=== PATIENT | female | born 1950 | race Caucasian/White ===

== ENCOUNTER 2022-02-15 10:43 | Outpatient (CLI) | payer MEDICARE, OTHER, SELFPAY ==
--- NOTE | 2022-02-15 11:00 | CRLHL7_ITS ---
For Patients: As a result of the Century Cures Act, medical imaging exams and procedure reports are released immediately into your electronic medical record. You may view this report before your referring provider. If you have questions, please contact your health care provider. Indication: FOLLOW UP FOR RECTAL CANCER Technique: Postcontrast CT chest, abdomen and pelvis. 79 cc Isovue 370 intravenous contrast. Oral water. Please note that all CT scans at this facility use dose modulation, iterative reconstruction, and/or weight-based dosing when appropriate to reduce radiation dose to as low as reasonably achievable. Comparison: 01/29/2021 Findings: In the chest, no suspicious pulmonary nodule is present. There is no mediastinal, hilar or axillary adenopathy. Visualized thyroid is normal. No aortic aneurysm or dissection. Small hiatal hernia is present. No infiltrate or edema. No effusion or pneumothorax. No fracture. In the abdomen, no intrahepatic mass is present. Gallbladder absent. No biliary obstruction. Spleen normal. Normal adrenal glands. Stable 1 centimeter simple cyst left kidney. Right kidney normal. Normal ureters. Vascular calcifications. No aneurysm. No adenopathy in the mesenteric fat or retroperitoneum. Pancreas normal. In the pelvis, stable uterine fibroid. No adnexal mass. Mild colonic diverticulosis. No diverticulitis. Normal appendix. No free air or free fluid. No abscess. Similar appearance of the rectum. No enlarged pelvic or inguinal lymph nodes. Degenerative changes. No fracture. No intrinsic osseous lesion. Impression: No evidence of metastatic disease. Stable exam. Please note that all CT scans at this facility use dose modulation, iterative reconstruction, and/or weight-based dosing when appropriate to reduce radiation dose to as low as reasonably achievable. Dictated by Suman Zhang MD @ 02/15/2022 1:12:12 PM (Electronically Signed)
[2022-02-15 11:22] LABS: Estimated Glomerular Filt Rate 60 ml/min
== END 2022-02-15 10:44 | disposition home or self-care (01) ==
PROVIDERS: PCP Radiology Radiation Oncology; Visit Provider Radiology Radiation Oncology
DX: C20 Malignant neoplasm of rectum (principal)
CPT/HCPCS: 36415; 71260; 74177; 82565; Q9967

== ENCOUNTER 2022-11-09 09:56 | Emergency (ER) | payer MEDICARE, OTHER, SELFPAY ==
[2022-11-09] VITALS (23 sets, daily range): BP systolic 121–151; BP diastolic 70–89; PULSE 83–104; RESP 16; TEMP 36.6; O2SAT 94–98; BMI 26.3
[2022-11-09 10:27] LABS: Basophils Absolute Auto 0.03 K/uL (0.00-0.30); Basophils Percent Auto 0.5 % (0.0-3.0); Eosinophils Absolute Auto 0.12 K/uL (0.00-0.50); Eosinophils Percent Auto 1.8 % (0.0-7.0); Hematocrit 44.7 % (33.0-51.0); Hemoglobin* 14.7 gm/dL (12.0-16.0); Immature Granulocytes Abs Auto 0.02 K/uL (0.00-0.30); Immature Granulocytes Pct Auto 0.3 %; Lymphocytes Percent Auto 27.7 % (20-44); Mean Corpuscular HGB Conc 33 gm/dL (32-36); Mean Corpuscular Hemoglobin 29 pg (26-34); Mean Corpuscular Volume 88 fL (80-100); Monocytes Percent Auto 5.4 % (0.0-11.0); Neutrophils Absolute Auto 4.17 K/uL (1.7-7.0); Neutrophils Percent Auto 64.3 % (42.0-72.0); Platelet Count* 301 K/uL (140-440); RDW Coefficient of Variation % 12.8 % (11.5-15.5); Red Blood Count 5.06 m/uL (4.00-5.20); White Blood Count* 6.49 K/uL (4.50-11.00)
--- NOTE | 2022-11-09 10:27 | CRLHL7_ITS ---
For Patients: As a result of the Century Cures Act, medical imaging exams and procedure reports are released immediately into your electronic medical record. You may view this report before your referring provider. If you have questions, please contact your health care provider. INDICATION: Chest pain. TECHNIQUE: PA and lateral chest. COMPARISON: [facility] portable chest x-ray November 20, 2018. FINDINGS: Both lungs are expanded and clear without pneumothoraces nodules or infiltrates. Small paracardiac fat pad on the left. Normal heart size. No pleural effusions. Surgical clips in the right upper quadrant. The included skeleton is unremarkable. IMPRESSION: No acute cardiopulmonary process identified. Interval removal of the right PICC line. Dictated by Hector Cota MD @ 11/09/2022 11:11:04 AM (Electronically Signed)
[2022-11-09 10:30] LABS: Slide Review Reflex No
[2022-11-09 10:44] LABS: Albumin* 4.3 g/dL (3.3-5.0); Chloride* 105 mmol/L (96-114); Sodium* 139 mmol/L (135-149)
[2022-11-09 10:46] LABS: Creatinine* 1.1 mg/dL (0.5-1.5); Est. Creatinine Clearance* 43.28; Estimated Glomerular Filt Rate 53 ml/min
[2022-11-09 10:47] LABS: Alanine Aminotransferase* 22 U/L (4-35); Alkaline Phosphatase* 109 U/L (40-150); Aspartate Amino Transferase* 27 U/L (12-35); Bilirubin Total* 0.5 mg/dL (0.1-1.5); Blood Urea Nitrogen* 16 mg/dL (7-30); Calcium* 9.2 mg/dL (8.4-10.6); Carbon Dioxide* 26 mmol/L (20-32); D Dimer Quantitative* 0.39 ug/ml (0.00-0.50); Glucose* 116 mg/dL (60-115); Total Protein* 7.7 g/dL (6.0-8.3)
[2022-11-09 10:57] LABS: Appearance Urine Clear (Clear); Bilirubin Urine Negative (Negative); Blood Urine Negative (Negative); Color Urine Yellow (Yellow); Glucose Urine Negative (Negative); Ketones Urine Negative (Negative); Leukocyte Esterase Urine Negative (Negative); Nitrite Urine Negative (Negative); Protein Urine Negative (Negative); Urobilinogen Urine 0.2 (0.2-1.0)
[2022-11-09 11:00] LABS: Troponin I* < 0.01 ng/mL (0.01-0.04)
--- NOTE | 2022-11-09 11:01 | ED.GENADULT ---
HPI - General Adult General Chief complaint: Chest Pain Stated complaint: Chest pain Time Seen by Provider: 11/09/22 10:00 Source: patient Mode of arrival: ambulatory Limitations: no limitations History of Present Illness HPI narrative: Patient is a 72-year-old female presenting emergency department for chest pain. She says the pain comes and been going on for a month and has been on. She states yesterday she notices going up into her neck and down her left arm so she became concerned. She tried given with primary care provider the current someone to clinic today. They sent her to the emergency department to be evaluated. She does state she is not having the pain at this time. She describes as a pressure sensation that radiates appearing neck and arm left arm intermittently. Denies any shortness of breath. Denies pain with deep breaths. Noon denies fevers, chills, abdominal pain, nausea, vomiting, lightheadedness, dizziness. She does have a history of colon cancer and was on chemo and radiotherapy there is currently not on that anymore. She follows with a cancer provider every 6 months. She has not seen a primary care provider in 4 years. She has never been diagnosed with hypertension and or other cardiac issues is not currently taking any medications. Related Data Home Medications Medication Instructions Recorded Confirmed No Known Home Medications 11/09/22 11/09/22 Allergies Allergy/AdvReac Type Severity Reaction Status Date / Time No Known Drug Allergies Allergy Verified 11/09/22 10:02 Review of Systems Status of ROS: Reports: 10 or more systems reviewed and unremarkable except as noted in History and below [facility] Social History Smoking Status: Never smoker Do you use any of these nicotine containing products: None Second hand tobacco smoke exposure: No How often do you have a drink containing alcohol: never AUDIT-C Alcohol total score: 0 Non-prescribed substance use: denies use service: No Exam Narrative: Exam Narrative: Const: Well-nourished, Well-developed, in mild distress Eyes: PERRL, no conjunctival injection, and symmetrical lids ENMT: Atraumatic external nose and ears. Moist mucous membranes. Neck: Symmetric, trachea midline, No thyromegaly. CVS: RRR, No murmurs or gallops. Peripheral pulses 2+ and equal in all extremities RESP: Unlabored respiratory effort. Clear to auscultation bilaterally. GI: Nontender/Nondistended, No rebound or guarding. MSK:Extremities w/o deformity, Normal Active ROM. Tenderness to palpation left upper chest Skin: Warm, Dry. No rashes or lesions. Neuro: Normal Muscle tone, No focal neurological deficits. Psych: Awake, Alert, & Oriented x3. Appropriate mood and affect. Const: Vital Signs, click to edit/add: Vital Signs - 24 hr 11/09/22 10:02 11/09/22 10:03 11/09/22 10:03 Temperature 97.8 F Pulse Rate 103 H 104 H Pulse Rate [Pulse Oximeter] 98 Respiratory Rate 16 Blood Pressure 151/89 H Blood Pressure [Le ft Upper Arm] 151/89 H Pulse Oximetry 96 96 96 Oxygen Delivery Me od Room Air 11/09/22 10:15 11/09/22 10:17 11/09/22 10:33 Temperature Pulse Rate 97 100 94 Pulse Rate [Pulse Oximeter] Respiratory Rate Blood Pressure 148/89 H Blood Pressure [Le ft Upper Arm] Pulse Oximetry 97 97 97 Oxygen Delivery Me thod 11/09/22 10:45 11/09/22 11:00 11/09/22 11:02 Temperature Pulse Rate 90 90 90 Pulse Rate [Pulse Oximeter] Respiratory Rate Blood Pressure 135/70 Blood Pressure [Le ft Upper Arm] Pulse Oximetry 94 95 95 Oxygen Delivery Me thod 11/09/22 11:15 11/09/22 11:30 11/09/22 11:32 Temperature Pulse Rate 87 88 91 Pulse Rate [Pulse Oximeter] Respiratory Rate Blood Pressure 129/70 Blood Pressure [Le ft Upper Arm] Pulse Oximetry 95 96 97 Oxygen Delivery Me thod 11/09/22 11:45 11/09/22 12:00 11/09/22 12:02 Temperature Pulse Rate 86 83 85 Pulse Rate [Pulse Oximeter] Respiratory Rate Blood Pressure 123/75 Blood Pressure [Le ft Upper Arm] Pulse Oximetry 95 96 97 Oxygen Delivery Me thod 11/09/22 12:15 11/09/22 12:30 11/09/22 12:32 Temperature Pulse Rate 84 85 85 Pulse Rate [Pulse Oximeter] Respiratory Rate Blood Pressure 128/76 Blood Pressure [Le ft Upper Arm] Pulse Oximetry 96 96 96 Oxygen Delivery Me thod 11/09/22 12:45 11/09/22 13:00 11/09/22 13:01 Temperature Pulse Rate 87 86 85 Pulse Rate [Pulse Oximeter] Respiratory Rate Blood Pressure 121/72 Blood Pressure [Le ft Upper Arm] Pulse Oximetry 95 98 97 Oxygen Delivery Me thod 11/09/22 13:19 11/09/22 13:30 11/09/22 13:32 Temperature Pulse Rate 87 87 89 Pulse Rate [Pulse Oximeter] Respiratory Rate Blood Pressure 127/70 Blood Pressure [Le ft Upper Arm] Pulse Oximetry 97 97 97 Oxygen Delivery Me thod Course Vital Signs Vital signs: Initial Vital Signs Pulse Rate 103 H 11/09/22 10:02 Pulse Oximetry 96 11/09/22 10:02 Vital Signs Pulse Rate 103 H 11/09/22 10:02 Pulse Oximetry 96 11/09/22 10:02 Temperature 97.8 F 11/09/22 10:03 Pulse Rate 89 11/09/22 13:32 Respiratory Rate 16 11/09/22 10:03 Blood Pressure 127/70 11/09/22 13:32 Pulse Oximetry 97 11/09/22 13:32 Oxygen Delivery Method Room Air 11/09/22 10:03 Medical Decision Making MDM Narrative Medical decision making narrative: Patient has an anterior feeling presenting emergency department for chest pain. She has been having symptoms for over a month now but does they got worse. Try to follow-up with primary care provider and when she arrived there they sent her to the emergency department. She states the pain goes into her arm and upper neck. On my exam of the pain was reproducible on palpation. Based on her description it does sound like it could be musculoskeletal but we cannot rule out cardiac at this time. Cbc, CMP, urinalysis, troponin, chest x-ray EKG were all ordered. She does not want anything for pain at this time Patient's lab work returns showing no concerning abnormalities. Repeat troponin was within normal limits. Both were less than 0.01. Chest x-ray showed no concerning abnormalities. EKG done here shows no concerning findings. We also did a D-dimer with a history of cancer and came back within normal limits. Pulmonary embolism is unlikely. Vital signs stable and aortic dissection or aortic aneurysm unlikely at this time. We are not able to definitively rule out ACS at this time but her heart score is 2. Will discharge home informed of follow-up to primary care provider. She says she has 1 she could follow up with. I informed her to speak to him about referring her for cardiology. She is agreeable to this plan. Lab Data Labs: Lab Results 11/09/22 11/09/22 11/09/22 Range/Units 10:11 10:30 12:36 WBC 6.49 (4.50-11.00) K/uL RBC 5.06 (4.00-5.20) m/uL Hgb 14.7 (12.0-16.0) gm/dL Hct 44.7 (33.0-51.0) % MCV 88 (80-100) fL MCH 29 (26-34) pg MCHC 33 (32-36) gm/dL RDW Coeff of Juan 12.8 (11.5-15.5) % Plt Count 301 (140-440) K/uL Neut % (Auto) 64.3 (42.0-72.0) % Lymph % (Auto) 27.7 (20-44) % Haakon % (Auto) 5.4 (0.0-11.0) % Eos % (Auto) 1.8 (0.0-7.0) % Baso % (Auto) 0.5 (0.0-3.0) % Neut # (Auto) 4.17 (1.7-7.0) K/uL Lymph # (Auto) 1.80 (0.90-2.90) K/uL Haakon # (Auto) 0.40 (0.00-0.90) K/UL Eos # (Auto) 0.12 (0.00-0.50) K/uL Baso # (Auto) 0.03 (0.00-0.30) K/uL Abs Immat Gran (auto) 0.02 (0.00-0.30) K/uL Imm/Tot Granulo (auto) 0.3 % D-Dimer Quant (PE/DVT) 0.39 (0.00-0.50) ug/ml Sodium 139 (135-149) mmol/L Potassium 4.0 (3.6-5.1) mmol/L Chloride 105 (96-114) mmol/L Carbon Dioxide 26 (20-32) mmol/L BUN 16 (7-30) mg/dL Creatinine 1.1 (0.5-1.5) mg/dL Estimated Creat Clear 43.28 Estimated GFR 53 ml/min Glucose 116 H (60-115) mg/dL Calcium 9.2 (8.4-10.6) mg/dL Total Bilirubin 0.5 (0.1-1.5) mg/dL AST 27 (12-35) U/L ALT 22 (4-35) U/L Alkaline Phosphatase 109 (40-150) U/L Troponin I < 0.01 L < 0.01 L (0.01-0.04) ng/mL Total Protein 7.7 (6.0-8.3) g/dL Albumin 4.3 (3.3-5.0) g/dL Urine Color Yellow (Yellow) Urine Appearance Clear (Clear) Urine pH 6.0 (5.0-8.5) Ur Specific Blackburn 1.020 (1.000-1.030) Urine Protein Negative (Negative) Urine Glucose (UA) Negative (Negative) Urine Ketones Negative (Negative) Urine Blood Negative (Negative) Urine Nitrite Negative (Negative) Urine Bilirubin Negative (Negative) Urine Urobilinogen 0.2 (0.2-1.0) Ur Leukocyte Esterase Negative (Negative) Urine RBC 0-2 (0-2) Urine WBC 0-2 (0-5) Ur Squamous Epith Cells Few (None-Few) Urine Bacteria Few A (None) ECG Data Attestation: I personally reviewed and interpreted this ECG as follows: (Normal sinus rhythm rate 90 beats per minute, normal axis, no ST or T-wave abnormalities, normal intervals) Prior ECG tracings: not available for review Discharge Plan Discharge Clinical Impression: Atypical chest pain Patient Disposition: Home, Self-Care Condition: Stable Instructions: Chest Pain (DC) Additional Instructions: Follow-up with the primary care provider. Speak to them about follow-up with a non destructive evaluation specialist. Your lab work and EKG all look within normal limits at this time. You may have a musculoskeletal strain I recommended taking Tylenol or ibuprofen for the pain. If symptoms worsen at all please return to the emergency department immediately Prescriptions: No Action No Known Home Medications Follow Up/Referrals: Alicia Winn MD [Primary Care Provider] - Stand Alone Forms: [employer] Info Instructions
[2022-11-09 11:14] LABS: Bacteria Urine Few; RBC Urine 0-2 (0-2); Squamous Epithelial Cell Urine Few (None-Few); WBC Urine 0-2 (0-5)
[2022-11-09 13:12] LABS: Troponin I* < 0.01 ng/mL (0.01-0.04)
== END 2022-11-09 13:45 | disposition home or self-care (01) ==
PROVIDERS: Emergency Provider Student in an Organized Health Care Education/Training Program; PCP Radiology Radiation Oncology
DX: R07.89 Other chest pain (principal)
CPT/HCPCS: 36415; 71046; 80053; 81001; 84484; 85025; 85379; 87086; 93005; 99283; 99284; 99285

== ENCOUNTER 2023-02-01 12:45 | Outpatient (CLI) | payer MEDICARE, OTHER, SELFPAY ==
--- NOTE | 2023-02-01 13:00 | CRLHL7_ITS ---
For Patients: As a result of the Century Cures Act, medical imaging exams and procedure reports are released immediately into your electronic medical record. You may view this report before your referring provider. If you have questions, please contact your health care provider. Indication: Malignant NEOPLASM OF RECTUM Technique: Postcontrast CT chest, abdomen and pelvis. 79 cc Isovue 370 intravenous contrast. Please note that all CT scans at this facility use dose modulation, iterative reconstruction, and/or weight-based dosing when appropriate to reduce radiation dose to as low as reasonably achievable. Comparison: 02/15/2022 Findings: In the chest, 2 millimeter nodule right upper lobe is likely similar, . Additional subtle nodular density is present within the right lung measuring 2 millimeters, . Mild biapical pleural parenchymal scarring is similar. No infiltrate. No edema. No effusion. No pneumothorax. No thyroid lesion. No enlarged intrathoracic lymph nodes. Breast tissue appears normal. No fracture. In the abdomen, there is no intrahepatic mass. The gallbladder is absent. The spleen is within normal limits. Normal pancreas. Normal right kidney. Incidental simple cyst left kidney. No retroperitoneal or mesenteric adenopathy. Normal adrenal glands. In the pelvis, the bladder is normal. Similar appearance of the uterus with intramural fibroid. No adnexal mass. No pelvic or inguinal adenopathy. Normal appendix. No bowel obstruction. No abscess. No fracture. Degenerative changes. Similar appearance of the rectum. Impression: No significant interval change. Please note that all CT scans at this facility use dose modulation, iterative reconstruction, and/or weight-based dosing when appropriate to reduce radiation dose to as low as reasonably achievable. Dictated by Suman Zhang MD @ 02/02/2023 1:24:47 PM (Electronically Signed)
[2023-02-01 13:19] LABS: Estimated Glomerular Filt Rate 60 ml/min
== END 2023-02-01 12:46 | disposition home or self-care (01) ==
LOC: CT 12:46
PROVIDERS: PCP Family Medicine; Visit Provider Nurse Practitioner
DX: C20 Malignant neoplasm of rectum (principal)
CPT/HCPCS: 36415; 71260; 74177; 82565; Q9967

== ENCOUNTER 2024-02-06 09:29 | Outpatient (CLI) | payer MEDICARE, OTHER, SELFPAY ==
--- NOTE | 2024-02-06 10:00 | CRLHL7_ITS ---
For Patients: As a result of the Century Cures Act, medical imaging exams and procedure reports are released immediately into your electronic medical record. You may view this report before your referring provider. If you have questions, please contact your health care provider. INDICATION: Follow-up rectal cancer TECHNIQUE: CT chest, abdomen and pelvis acquired with 80 mL Isovue 370 IV contrast. COMPARISON: 02/01/2023, 02/15/2022 chest abdomen pelvis CTs, 01/29/[address] FINDINGS: CHEST: Cardiovascular structures: Heart size is normal. Thoracic aorta and main pulmonary artery are normal in caliber. Mediastinum and skye: No mass or adenopathy. Lungs and pleura: A few right upper lobe micro nodules best seen on the MIP images are stable. No new nodules. Chest wall and axilla: No mass or adenopathy. Bones: No suspicious bone lesions. Unremarkable for age. ABDOMEN AND PELVIS: Liver: Unremarkable. Gallbladder and bile ducts: Cholelithiasis. Pancreas: Unremarkable. Spleen: Unremarkable. Adrenal glands: Unremarkable. Kidneys: Left renal cyst. GI tract: Sigmoid diverticulosis without diverticulitis. No mass or inflammation seen. Vascular structures: Unremarkable. Lymph nodes: Unremarkable. Miscellaneous: Unremarkable. No free air or significant free fluid. Pelvic Organs: Stable presumed uterine fibroid. Bones: No suspicious bone lesions. Unremarkable for age. IMPRESSION: No evidence for recurrent or metastatic disease. No change. Please note that all CT scans at this facility use dose modulation, iterative reconstruction, and/or weight-based dosing when appropriate to reduce radiation dose to as low as reasonably achievable. Dictated by Gerardo Lundberg MD @ 02/07/2024 2:04:43 PM (Electronically Signed)
[2024-02-06 10:34] LABS: Creatinine* 1.1 mg/dL (0.5-1.5); Estimated Glomerular Filt Rate 53 ml/min
== END 2024-02-06 09:30 | disposition home or self-care (01) ==
LOC: CT 09:30
PROVIDERS: PCP Family Medicine; Visit Provider Nurse Practitioner
DX: C20 Malignant neoplasm of rectum (principal)
CPT/HCPCS: 36415; 71260; 74177; 82565; Q9967